=== PATIENT | female | born 2000 | race Caucasian/White ===

== ENCOUNTER → 2024-01-20 14:00 | Outpatient (BNVA) | payer OTHER, SELFPAY | PROVIDERS: PCP Nurse Practitioner Family; Visit Provider Nurse Practitioner Family | DX: D50.9 Iron deficiency anemia, unspecified (principal); Z68.33 Body mass index [BMI] 33.0-33.9, adult | CPT/HCPCS: 80053; 82728; 83550; 84443; 85025 ==